=== PATIENT | female | born 1990 | race Caucasian/White ===

== ENCOUNTER 2018-06-06 20:48 | Emergency (ER) | payer SELFPAY ==
[2018-06-06 21:00] VITALS: TEMP 97.6; BMI 26.9
[2018-06-06] MEDS ORDERED: SODIUM CHLORIDE 1,000 ML IV STA (21:56)
--- NOTE | 2018-06-06 22:01 | PDOC ---
History of Present Illness - General Chief Complaint: Syncope/Near Syncope Stated Complaint: SYNCOPE Time Seen by Provider: 06/06/18 21:39 History Source: Patient - History of Present Illness Initial Comments: 06/06/18 21:57 HISTORY OF PRESENT ILLNESS: 27-year-old woman with past medical history of Anton's disease, diabetes insipidus status post pituitary resection of presents emergency department for evaluation of syncope. Patient is a certified nursing assistant instructor was on the floor watching intravenous cannulation when she began to feel lightheaded. Patient left the room leaning against the door and requested help she felt increasingly lightheaded and then remembers waking up on the floor. She states other people helped to the ground did not strike her head. Patient denies any incontinence of urine or stool. Patient reports mild headache at this time rated 3/10. No recent travel or sick contacts. PAST MEDICAL HISTORY: see HPI SURGICAL HISTORY: pituitary resection ALLERGIES: No known drug allergies REVIEW OF SYSTEMS General/Constitutional: Denies fever or chills. Denies weakness, weight change. HEENT: Denies change in vision. Denies ear pain or discharge. Denies sore throat. Cardiovascular: Denies chest pain or shortness of breath. Respiratory: Denies cough, wheezing, or hemoptysis. Gastrointestinal: Denies nausea, vomiting, diarrhea or constipation. Denies rectal bleeding. Genitourinary: Denies dysuria, frequency, or change in urination. Musculoskeletal: Denies joint or muscle swelling or pain. Denies neck or back pain. Skin and breasts: Denies rash or easy bruising. Neurologic: see HPI Psychiatric: Denies depression or anxiety. Endocrine: Denies increased thirst. Denies abnormal weight change. Hematologic/Lymphatic: Denies anemia, easy bleeding, or history of blood clots. Allergic/Immunologic: Denies hives or skin allergy. Denies latex allergy. PHYSICAL EXAM General Appearance: Well-appearing, appropriately dressed. No apparent distress , no intoxication. HEENT: EOMI, PERRLA, normal ENT inspection, normal voice, TMs normal, pharynx normal. No conjunctival pallor. No photophobia, scleral icterus. Neck: Supple. Trachea midline. No tenderness, rigidity, carotid bruit, stridor , lymphadenopathy, or thyromegaly. Respiratory/Chest: Lungs CTAB. No shortness of breath, chest tenderness, respiratory distress, accessory muscle use. No crackles, rales, rhonchi, stridor , wheezing, dullness Cardiovascular: RRR. S1, S2. No JVD, murmur, bradycardia, tachycardia. Vascular Pulses: Dorsalis-Pedis (R): 2+, Dorsalis-Pedis (L): 2+ Gastrointestinal/Abdominal: Normal bowel sounds. Abdomen soft, non-distended. No tenderness or rebound tenderness. No organomegaly, pulsatile mass, guarding, hernia, hepatomegaly, splenomegaly. Lymphatic: No adenopathy, tenderness. Musculoskeletal/Extremities: Normal inspection. FROM of all extremities, normal capillary refill. Pelvis Stable. No CVA tenderness. No tenderness to extremities, pedal edema, swelling, erythema or deformity. Integumentary: Appropriate color, dry, warm. No cyanosis, erythema, jaundice or rash Neurologic: supervisor grounds II-XII intact. Fully oriented, alert. Appropriate mood/affect. Motor strength 5/5. No appreciable EOM palsy, facial droop or sensory deficit. Past History - Past Medical History Allergies/Adverse Reactions: Allergies Allergy/AdvReac Type Severity Reaction Status Date / Time No Known Allergies Allergy Verified 06/06/18 20:59 - Suicide/Smoking/Psychosocial Hx Smoking History: Never smoked Have you smoked in the past 12 months: No Information on smoking cessation initiated: No Hx Alcohol Use: No Drug/Substance Use Hx: No *Physical Exam - Vital Signs Last Vital Signs Temp Pulse Resp BP Pulse Ox 97.6 F 91 H 18 121/84 100 06/06/18 20:59 06/06/18 20:59 06/06/18 20:59 06/06/18 20:59 06/06/18 20:59 Heart Score/ECG Review - History History: Slightly suspicious - Electrocardiogram EKG: Normal - Age Age: </= 45 - Risk Factors Based on the list above the patient has:: No risk factors known - Troponin Troponin: </= normal limit - Score Heart Score - Total: 0 Moderate Sedation - Procedure Monitoring Vital Signs: Procedure Monitoring Vital Signs Temperature 97.6 F 06/06/18 20:59 Pulse Rate 91 H 06/06/18 20:59 Respiratory Rate 18 06/06/18 20:59 Blood Pressure 121/84 06/06/18 20:59 O2 Sat by Pulse Oximetry (%) 100 06/06/18 20:59 ED Treatment Course - LABORATORY CBC & Chemistry Diagram: 06/06/18 21:54 06/06/18 21:54 - ADDITIONAL ORDERS Additional order review: Laboratory Results 06/06/18 06/06/18 21:54 21:54 Sodium 139 Potassium 3.7 Chloride 106 Carbon Dioxide 29 Anion Gap 4 L BUN 11 Creatinine 0.8 Creat Clearance w eGFR > 60 Random Glucose 117 H Calcium 8.8 Total Bilirubin 0.4 AST 16 ALT 18 Alkaline Phosphatase 75 Creatine Kinase 50 Troponin I < 0.02 Total Protein 7.2 Albumin 3.9 TSH 0.12 L Urine Color Yellow Urine Appearance Slcloudy Urine pH 5.0 Ur Specific [place] 1.018 Urine Protein Negative Urine Glucose (UA) Negative Urine Ketones Negative Urine Blood Negative Urine Nitrite Negative Urine Bilirubin Negative Urine Urobilinogen Negative Ur Leukocyte Esterase Negative Urine HCG, Qual Negative 06/06/18 21:54 RBC 4.45 MCV 87.1 MCHC 35.2 RDW 12.4 MPV 7.6 Neutrophils % 61.2 Lymphocytes % 32.2 Monocytes % 5.1 Eosinophils % 1.1 Basophils % 0.4 - Medications Given in the ED: ED Medications Discontinued Medications Generic Name Dose Route Start Last Admin Trade Name Freq PRN Reason Stop Dose Admin Sodium Chloride 1,000 mls @ 1,000 mls/hr 06/06/18 21:56 06/06/18 22:18 Normal Saline - IV 06/06/18 22:55 1,000 mls/hr ASDIR STA Administration Medical Decision Making - Medical Decision Making 06/06/18 22:00 A/P: 27-year-old female with syncopal episode Likely vasovagal is occurred after witnessing intravenous cannulation laboratory draw. EKG, labs, urine, IV fluids 06/07/18 02:57 Laboratory testing remarkable for TSH is 0.19. 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 Patient has had close monitoring of her thyroid function with her rubber ball finisher. Results of been discussed with the patient states she will follow-up with her rubber ball finisher next week for reevaluation. EKG: Sinus rhythm with rate of 77. Normal axis. Normal intervals. No ischemic changes present. I will discharge patient home to follow-up with her primary doctor as needed. *DC/Admit/Observation/Transfer Diagnosis at time of Disposition: Syncope, vasovagal - Discharge Dispostion Disposition: HOME Condition at time of disposition: Fair Decision to Admit order: No - Referrals - Patient Instructions Printed Discharge Instructions: DI for Syncope in Adults (Fainting) Additional Instructions: Your TSH was 0.19. Please follow-up with your rubber ball finisher for continued evaluation. Eat a well-balanced diet. Keep well-hydrated. Make an appointment to follow-up with her primary doctor in 1 week. Return to the emergency department for reevaluation sooner expressing any symptoms. Thank you very much for choosing us to provide your emergent health care needs. - Post Discharge Activity
[2018-06-06 22:35] LABS: BASO % 0.4 % (0-2.0); EOS % 1.1 % (0-4.5); HEMATOCRIT 38.8 % (32.4-45.2); HEMOGLOBIN 13.7 GM/dL (10.7-15.3); LYMPH % 32.2 % (8-40); MCH 30.7 pg (25.7-33.7); MCHC 35.2 g/dl (32.0-36.0); MEAN CELL VOLUME 87.1 fl (80-96); MEAN PLT VOLUME 7.6 fl (7.5-11.1); MONO % 5.1 % (3.8-10.2); NEUT % 61.2 % (42.8-82.8); PLATELET COUNT 316 K/MM3 (134-434); RBC 4.45 M/mm3 (3.60-5.2); RDW 12.4 % (11.6-15.6)
[2018-06-07 00:29] LABS: HCG,QUALITATIVE URINE Negative
[2018-06-07 00:42] LABS: URINE APPEARANCE SLCLOUDY; URINE BILIRUBIN NEGATIVE (<2.0 mg/dL); URINE COLOR YELLOW; URINE GLUCOSE (UA) NEGATIVE (NEGATIVE); URINE KETONE NEGATIVE (NEGATIVE); URINE LEUK ESTERASE NEGATIVE (NEGATIVE); URINE NITRITE NEGATIVE (NEGATIVE); URINE PROTEIN NEGATIVE (NEGATIVE); URINE UROBILINOGEN NEGATIVE mg/dL (0.2-1.0)
[2018-06-07 02:34] LABS: ALBUMIN 3.9 g/dl (3.4-5.0); ALK PHOS 75 U/L (45-117); ANION GAP 4 MMOL/L (8-16); BILIRUBIN,TOTAL 0.4 mg/dL (0.2-1); BLOOD UREA NITROGEN 11 mg/dL (7-18); CALCIUM 8.8 mg/dL (8.5-10.1); CHLORIDE 106 mmol/L (98-107); CO2 29 mmol/L (21-32); CREATININE 0.8 mg/dL (0.55-1.3); GLUCOSE,RANDOM 117 mg/dL (74-106); POTASSIUM 3.7 mmol/L (3.5-5.1); SGOT/AST 16 U/L (15-37); SGPT/ALT 18 U/L (13-61); SODIUM 139 mmol/L (136-145); TOT PROT 7.2 g/dl (6.4-8.2)
[2018-06-07 03:12] VITALS: BP 113/69; PULSE 84
--- NOTE | 2018-06-07 14:19 | EKG ---
Test Reason : Blood Pressure : / mmHG Vent. Rate : 077 BPM Atrial Rate : 077 BPM P-R Int : 162 ms QRS Dur : 074 ms QT Int : 394 ms P-R-T Axes : 031 044 022 degrees QTc Int : 445 ms NORMAL SINUS RHYTHM NONSPECIFIC T WAVE ABNORMALITY ABNORMAL ECG NO PREVIOUS ECGS AVAILABLE Confirmed by DIANA SMALLS MD ([id number] on 06/07/2018 2:19:14 PM Referred By: Confirmed By:DIANA SMALLS MD
== END 2018-06-07 03:12 | disposition home or self-care (01) ==
LOC: JER 20:48
PROC: 3E0337Z Introduction of Electrolytic and Water Balance Substance into Peripheral Vein, Percutaneous Approach (ICD-10-PCS; principal; 2018-06-06)
DX: R55 Syncope and collapse (principal); Z86.39 Personal history of other endocrine, nutritional and metabolic disease
CPT/HCPCS: 36415; 80053; 81003; 82550; 84443; 84484; 84703; 85025; 87086; 93005; 93010; 99284-25; J7030